=== PATIENT | male | born 1940 | race Caucasian/White ===

== ENCOUNTER 2017-06-14 18:54 | Emergency (ER) | payer OTHER, BC ==
[2017-06-14 19:00] VITALS: RESP 16; TEMP 98.6; O2SAT 96
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
[2017-06-14 20:36] VITALS: BP 132/77; PULSE 68
== END 2017-06-14 20:35 | disposition home or self-care (01) ==
DX: S83.92XA Sprain of unspecified site of left knee, initial encounter (principal); J45.909 Unspecified asthma, uncomplicated; W23.1XXA Caught, crushed, jammed, or pinched between stationary objects, initial encounter; Y99.8 Other external cause status; Y93.01 Activity, walking, marching and hiking
CPT/HCPCS: 73564; 99283; L1830